=== PATIENT | male | born 1985 | race Caucasian/White ===

== ENCOUNTER 2020-03-10 16:54 | Observation (INO) ==
[2020-03-10] MEDS ORDERED: ONDANSETRON 4 MG/2 ML VIAL ONE (17:26)
[2020-03-10] MEDS ORDERED: NALOXONE 0.4 MG/ML VIAL ONE (17:26)
[2020-03-10] MEDS ORDERED: ONDANSETRON 4 MG/2 ML VIAL IV ONE (17:28)
[2020-03-10] MEDS ORDERED: SODIUM CHLORIDE 0.9% 1,000 ML IV STA (17:28)
[2020-03-10] MEDS ORDERED: NALOXONE 0.4 MG/ML VIAL IV STA (17:28)
[2020-03-10 18:13] LABS: Basophils # 0.1 10*3/uL (0.0-0.2); Eosinophils # 0.3 10*3/uL (0.0-0.87); Eosinophils % 3.8 % (0.00-10.9); Hematocrit 37.6 VOL% (42.0-52.0); Hemoglobin 12.5 GM/DL (14.0-18.0); Immature Granulocytes % 0.3 %; Immature Granulocytes Absolute 0.02 #; Lymphocytes # 2.5 10*3/uL (1.4-4.0); Lymphocytes % 36.7 % (21.2-54.2); Mean Corpuscular HGB Conc 33.2 GM/DL (32-36); Mean Platelet Volume 9.1 FL (9.6-12.0); Monocytes % 5.3 % (1.7-12.7); Neutrophils % 52.9 % (38.7-73.9); Platelet Count 304 T/CUMM (130-400); Red Blood Count 4.32 MC/CUMM (3.8-5.5); Red Cell Distribution Width 14.3 % (9.3-17.3); White Blood Count 6.8 T/CUMM (4-12)
[2020-03-10 18:19] LABS: Apearance,Urine CLEAR (Clear); Bilirubin,Urine Negative (Negative); Blood, Urine Negative (Negative); Glucose,Urine (UA) Negative (Negative); Ketones,Urine Negative (Negative); Mucus,Urine Few /LPF (Occasional); Nitrite,Urine Negative (Negative); Protein,Urine Negative; RBC,Urine 4 /HPF (0-4); Urine Color Yellow (Yellow); Urine Specific Gravity 1.023 (1.001-1.035); Urine Urobilinogen < 2.0 EU/DL (0.2-1.0); WBC,Urine 2 /HPF (0-6)
[2020-03-10 18:24] LABS: PT Patient Result 10.9 SECS (9.8-11.9)
[2020-03-10 18:35] LABS: Eosinophils 3 % (0-10); Lymphocytes 39 % (20-55); Segmented Neutrophils 57 % (50-85); Total Cells Counted 100
[2020-03-10 18:36] LABS: Platelet Estimate Adequate; Reactive Lymphocytes 1+
[2020-03-10 18:50] LABS: Alanine Aminotransferase 21 U/L (16-61); Albumin 3.5 G/DL (3.4-5.0); Alkaline Phosphatase 77 U/L (45-117); Aspartate Amino Transferase 12 U/L (0-37); Blood Urea Nitrogen 13 MG/DL (7-18); Glucose 97 MG/DL (74-106); Osmolality,Calculated 278.4 MOS/KG (273-304); Total Protein 6.9 G/DL (6.4-8.3)
[2020-03-10 18:50] LABS: Troponin I < 0.015 NG/ML (0.00-0.045)
[2020-03-10 18:51] LABS: Estimated Glom Filtration Rate 0 ML/MIN
[2020-03-10 19:02] LABS: Barbiturates Screen,Urine Negative (Negative); Benzodiazepines Screen,Urine Positive (Negative); Cannabinoid Screen,Urine Negative (Negative); Opiate Screen,Urine Negative (Negative); Phencyclidine Screen,Urine Negative (Negative)
[2020-03-10] MEDS ORDERED: NICOTINE 21 MG/24 HR PATCH TRANSDERM PRN (20:40)
[2020-03-10] MEDS ORDERED: DEXTROSE 50% 25 GM/50 ML VIAL IV PRN (20:40)
[2020-03-10] MEDS ORDERED: ACETAMINOPHEN 325 MG TABLET PO PRN (20:40)
[2020-03-10] MEDS ORDERED: ONDANSETRON 4 MG/2 ML VIAL IV PRN (20:40)
[2020-03-10] MEDS ORDERED: DOCUSATE SODIUM 100 MG CAPSULE PO PRN (20:40)
[2020-03-10] MEDS ORDERED: GLUCAGON 1 MG VIAL IM PRN (20:40)
[2020-03-10] MEDS ORDERED: ENOXAPARIN 40 MG/0.4 ML SYRINGE SUBCUT SCH (21:00)
[2020-03-10] MEDS: DEXTROSE 5% NACL 0.45% 1,000 ML IV SCH (22:39)
[2020-03-11] MEDS: DEXTROSE 5% NACL 0.45% 1,000 ML IV SCH (06:47)
[2020-03-11 08:31] VITALS: BP 110/77
== END 2020-03-11 08:38 | disposition left against medical advice (07) ==
LOC: EDBD → EDUNIT# → N.ED 16:54 → N.EDINP 16:54 → N.TELES 20:42
PROVIDERS: ADMIT Family Medicine; ATTEND Family Medicine